=== PATIENT | male | born 1955 | race Caucasian/White ===

== ENCOUNTER 2018-02-20 09:04 | Emergency (ER) | payer OTHER ==
--- NOTE | 2018-02-20 09:13 | ED Physician Documentation ---
General Adult - HISTORIAN Historian: patient - HPI Stated Complaint: sore throat, congestions Chief Complaint: General Adult Onset: days ago Timing: still present Severity: moderate Further Comments: yes (Pt is a 62 yo male with sore throat and congestion x 3 days. Pt has felt feverish and has had cough. No n/v.) - ROS CONST: chills, other (malaise) EYES/ENT: sore throat CVS/RESP: cough (congestion) MS/SKIN/LYMPH: none - PAST HX Past History: other (appendectomy) Allergies/Adverse Reactions: Allergies Allergy/AdvReac Type Severity Reaction Status Date / Time No Known Allergies Allergy Verified 02/20/18 09:14 Home Medications: Ambulatory Orders Medication Instructions Recorded NK [NK] 08/27/15 - SOCIAL HX Smoking History: non-smoker - FAMILY HX Family History: No - VITAL SIGNS Vital Signs: Vital Signs Temp Pulse Resp BP Pulse Ox 150/84 08/27/15 10:58 - REVIEWED ASSESSMENTS Nursing Assessment Reviewed: Yes Vitals Reviewed: Yes Progress - Progress Progress: Rx Z-esha. Use as directed. General Adult Physical Exam - PHYSICAL EXAM GENERAL APPEARANCE: mild distress EENT: pharyngeal erythema NECK: normal inspection, supple, lymphadenopathy RESPIRATORY: no resp distress, chest non-tender, breath sounds normal CVS: reg rate & rhythm, heart sounds normal BACK: normal inspection SKIN: warm/dry, normal color EXTREMITIES: non-tender, normal range of motion, no evidence of injury NEURO: oriented X3, motor nml, sensation nml Discharge Clincal Impression: congestions Pharyngitis Qualifiers: Pharyngitis/tonsillitis etiology: unspecified etiology Qualified Code(s): J02.9 - Acute pharyngitis, unspecified Referrals: Primary Doctor,No [REFERRING] - Condition: Good Disposition: HOME, SELF-CARE Decision to Admit: NO Decision Time: 09:18
[2018-02-20 09:26] VITALS: BP 165/97
== END 2018-02-20 09:25 | disposition home or self-care (01) ==
LOC: ED 09:04
DX: J02.9 Acute pharyngitis, unspecified (principal)
CPT/HCPCS: 99282